=== PATIENT | female | born 1950 | race Caucasian/White ===

== ENCOUNTER 2019-01-11 23:37 | Inpatient (IN) | payer MEDICARE, MEDICAID ==
[~2019-01-11] VITALS: Ht 172.7 cm; Wt 81.2 kg
[2019-01-12] MEDS ORDERED: ACETAMINOPHEN 325 MG TABLET PO PRN (00:30)
[2019-01-12] MEDS ORDERED: TEMAZEPAM 7.5 MG CAPSULE PO PRN (00:30)
[2019-01-12] MEDS ORDERED: MAG HYDROX/AL HYDROX/SIMETH 30 ML UDC PO PRN (00:30)
[2019-01-12] MEDS ORDERED: MAGNESIUM HYDROXIDE 30 ML UDC PO PRN (00:30)
[2019-01-12] MEDS ORDERED: BLOOD SUGAR DIAGNOSTIC 1 EACH STRIP IN ONE (00:30)
[2019-01-12] MEDS ORDERED: LORAZEPAM 0.5 MG TABLET PO PRN (00:30)
[2019-01-12] MEDS ORDERED: OMEP20CA11 PO (01:13)
[2019-01-12] MEDS ORDERED: ONDA4TAB10 PO (01:13)
[2019-01-12] MEDS ORDERED: ATOR40TA PO (01:13)
[2019-01-12] MEDS ORDERED: BUSP10TA3 PO (01:13)
[2019-01-12] MEDS ORDERED: TRAZ-182 PO (01:13)
[2019-01-12] MEDS ORDERED: LEVO150T8 PO (01:13)
[2019-01-12] MEDS ORDERED: TIZA4TAB5 PO (01:13)
[2019-01-12] MEDS ORDERED: VIT D PO (01:13)
[2019-01-12] MEDS ORDERED: ASPI-605 PO (01:13)
[2019-01-12] MEDS ORDERED: ALBUT2 CONTNEB (01:13)
[2019-01-12] MEDS ORDERED: OXYC-133 PO (01:13)
[2019-01-12] MEDS: ATORVASTATIN 40 MG TABLET PO SCH ×2 (01:30→21:19)
[2019-01-12] MEDS ORDERED: ALBUTEROL FS 2.5 MG/3 ML VIAL.NEB CONTNEB SCH (01:30)
[2019-01-12 02:09] VITALS: BP 136/82
--- NOTE | 2019-01-12 02:41 | NUR ---
ADMISSION NOTES: ADMITTED THIS 68Y/O FEMALE PATIENT ADMIT FROM [facility]/ IN[facility] FROM HOME , PT ADMITTED TO GPS ON [address] TO SELF PER HOLD OVER DOSE ON UNKNOWN AMOUNTS OF XANEX,OXYCODENE, VALIUM AND ZOFRAN ,UPON FACE TO FACE ASSESSMENT PATIENT IS A&O X ,2,3 DISORGNIZED, ANXIOUS, FLAT AFFECT, PARNOID, DISHELVED, NEEDY ,EASILY GETS AGITATED, DENIES SI/HI AT THIS TIME , AND PT. STATES I FEELING OVER WHELMED .PT. IS POOR HISTORIAN, POOR INSIGHT ,POOR JUDGEMENT , PT. REFUSED TO TAKE SHOWER AT THIS TIME , PT. REFUSED TO SIGNS ADMISSION CONSENT PAPERS , DUE TO MENTAL STATUS UNCOOPERTIVE , PT. REFUSED TO CHECK INTIALLY BLOOD SUGAR, I DONT WANTS CHECK AT THIS TIME , ENCOURAGED, EXPLAINED RISKS AND BENEFITS STILL REFUSED , AWARE AND NOTIFIED OF THE ADMISSION, BELONGINGS CONTRABAND WERE DONE , NURSING ASSESSMENT DONE ,PT. RIGHTS DISCUSS BY MODEL BUILDER DISPLAY , PROVIDE THE PT. WITH HANDBOOK, AND MEDICATIONS GUIDE, ENVIRONMENTAL SAFETY CHECK DONE, ENCOURAGED PT. VERBALIZED ANY FEELING CONCERN TO STAFF, ORIENT TO UNIT POLICY, NO ACUTE DISTRESS NOTED,VITAL SIGNS WNL ,DENIES ANY PAIN AT THIS TIME ,WILL CONTINUE TO MONITOR FOR Q15 SAFETY AND BEHAVIOR.
[2019-01-12] MEDS ORDERED: SUMA100T16 PO (03:17)
--- NOTE | 2019-01-12 06:54 | NUR ---
RN NOTES: PLACED CALL AND INFORMED TO PT. CONTACT MEMBER MALLORY RUIZ FRIEND # [phone] ,
[2019-01-12 08:00] VITALS: BP 127/65
[2019-01-12] MEDS: ASPIRIN EC 81 MG TABLET.DR PO SCH (08:57)
[2019-01-12] MEDS: TIZANIDINE HCL 4 MG TABLET PO SCH (08:57)
[2019-01-12] MEDS ORDERED: OMEPRAZOLE 20 MG CAPSULE.DR PO SCH (09:00)
[2019-01-12] MEDS ORDERED: LEVOTHYROXINE SODIUM 150 MCG TABLET PO SCH (09:00)
[2019-01-12] MEDS: oxyCODONE/APAP (5/325 MG) 1 UDTAB TABLET PO PRN (10:07)
--- NOTE | 2019-01-12 10:07 | NUR ---
RN NOTE- PT C/O PAIN GENERALIZED TO LOWER EXTREMITIES AND BACK 6-10. OXYCODONE ADMINISTERED AT THIS TIME.
[2019-01-12] MEDS: PANTOPRAZOLE 40 MG TABLET.DR PO SCH (10:21)
[2019-01-12] MEDS: LEVOTHYROXINE SODIUM 75 MCG TABLET PO SCH (10:22)
--- NOTE | 2019-01-12 10:36 | NUR ---
WOUND CARE CONSULT: PT PRESENTS CONTINENT AND INDEPENDENT WITH BED MOBILITY BUT WITH RASH TO PERINEAL/INNER BUTTOCK AREAS, VERY MOIST SKIN AND DISCOLORATION TO HANDS AND ARMS, PRESENT ON ADMISSION. RECOMMENDATIONS MADE FOR SKIN CARE AND PROTECTION. DISCUSSED WITH NURSING STAFF. WILL SEE PRN. CASTILLO IN AGREEMENT WITH PLAN OF CARE. Addendum: 01/12/19 at 1038 by ARISTIDES WELLS WNDNU Amended: Links added.
[2019-01-12] MEDS: Z GUARD REMEDY 2 OZ OINT TP SCH (11:00)
[2019-01-12] MEDS ORDERED: Z GUARD REMEDY 2 OZ OINT TP PRN (11:00)
--- NOTE | 2019-01-12 12:15 | NUR ---
RN NOTE- PT W ONE SMALL EPISODE OF VOMITING AFTER LUNCH. MINIMAL AMOUNT. WILL MONITOR
--- NOTE | 2019-01-12 14:45 | NUR ---
SW contacted pts friend Mindy Varma [phone] who stated she will brass pickler pt and transport home once stable for discharge. Friend mentioned that pt does not have family involved in her care and that she has a son that lives out of state who has minimal involvement with pt. SW asked Mindy for sons phone number and Mindy stated that she was driving and was unable to provide SW with sons contact information but would have him call SW to discuss pts treatment and discharge plan.
--- NOTE | 2019-01-12 15:31 | NUR ---
GROUP NOTE: SW encouraged pt to participate in group on this present day discussing "discharge planning." Pt not appropriate for group at this time due to her current delusions of persecution and paranoia.
[2019-01-12 16:00] VITALS: BP 111/65
--- NOTE | 2019-01-12 16:14 | NUR ---
INITIAL DISCHARGE PLAN: Pt wishes to return home [address] [facility] [address] . Per friend Mindy [phone] she is safe to return home and stated that she would transport her home once stable for discharge. WILLIAM will help form a safe and proper discharge in collaboration with .
[2019-01-12] MEDS: CLOTRIMAZOLE 1% 15 GM TUBE TP SCH (16:25)
--- NOTE | 2019-01-12 19:40 | NUR ---
GPS NOTES DR. GERARDO, IN UNIT. SEEN AND EXAMINED PATIENT.
[2019-01-12 20:07] VITALS: BP 149/94
[2019-01-12] MEDS ORDERED: hydrOXYzine PAMOATE 25 MG CAPSULE PO PRN (20:30)
[2019-01-12] MEDS: OLANZAPINE 5 MG TABLET PO SCH (20:34)
[2019-01-12] MEDS: MIRTAZAPINE 15 MG TABLET PO SCH (21:19)
[2019-01-13] MEDS: oxyCODONE/APAP (5/325 MG) 1 UDTAB TABLET PO PRN (03:06)
[2019-01-13] MEDS: LEVOTHYROXINE SODIUM 75 MCG TABLET PO SCH (06:32)
[2019-01-13 06:54] LABS: BASOPHILS % (AUTO) 0.6 % (0.0-2.0); EOSINOPHILS % (AUTO) 2.3 % (0.0-6.0); HEMATOCRIT 36 % (33-45); HEMOGLOBIN 11.9 g/dL (11.5-14.8); LYMPHOCYTES # (AUTO) 2.4 /CMM (0.8-4.8); LYMPHOCYTES % (AUTO) 28.8 % (20.0-44.0); MEAN CORPUSCULAR HGB CONC 33 g/dl (31.0-36.0); MEAN CORPUSCULAR VOLUME 90 fL (82-100); NEUTROPHILS # (AUTO) 4.7 /CMM (1.8-8.9); NEUTROPHILS % (AUTO) 56.3 % (43.0-81.0); PLATELET COUNT (AUTO) 426 /CMM (150-450); RED BLOOD CELL COUNT(AUTO) 4.01 MIL/uL (4.0-5.2); WHITE BLOOD COUNT (AUTO) 8.4 K/uL (4.3-11.0)
[2019-01-13 07:01] LABS: CHOLESTEROL 215 mg/dL (<200); HDL CHOLESTEROL 56 mg/dL (40-60); LDL 124 mg/dL (0-99); TRIGLYCERIDES 121 mg/dL (30-150)
[2019-01-13 07:02] LABS: ALBUMIN 3.4 g/dL (3.4-5.0); BILIRUBIN,TOTAL 0.3 mg/dL (0.2-1.0); CALCIUM, SERUM 9.2 mg/dL (8.5-10.1); CREATININE 0.7 mg/dL (0.6-1.3); MAGNESIUM 1.8 mg/dL (1.8-2.4); PHOSPHORUS 2.6 mg/dL (2.5-4.9); POTASSIUM 3.3 mmol/L (3.5-5.1); TOTAL PROTEIN, SERUM 7.2 g/dL (6.4-8.2)
[2019-01-13 07:08] LABS: THYROID STIMULATING HORMONE 2.068 uIU/mL (0.358-3.74)
[2019-01-13 08:00] VITALS: BP 158/96
--- NOTE | 2019-01-13 09:48 | NUR ---
COLLATERAL INFORMATION: SW received a call from pts christiano Dudley [phone] who provided SW with collateral information. Per son, pt was discharged from [facility] in [place] last week after having a heart attack, son stated that pt was discharged home on hospice after refusing heart surgery. Son mentioned that this is pts first psychiatric hospitalization and that her current symptoms are probably due to pt withdrawing from pain medications, benzodiazepines, and opiates. Son stated that pt has a long history of addiction and dependence of opiates and pain medications and has been hospitalized several times for overdosing and that the last time she was hospitalized she was discharged to a SNF due to her inability to care for herself at home. Per son, pt cannot return home as she cannot care for herself and is at risk of another heart attack. SW informed son that pt will be referred to a local SNF and son agreed. SW also informed him that she would inform pts nurse of pt current history of heart failure.
--- NOTE | 2019-01-13 09:57 | NUR ---
SW endorsed follow up with Litzy Blanco RN to contact pts son and inform theatrical variety agent of pts recent heart attack.
--- NOTE | 2019-01-13 09:59 | NUR ---
JEFF GONCALVES SERVICE RECEIVED CALL FROM PT'S SON THAT SHE RECENTLY HAD A HEART ATTACK AND WAS DISCHARGED FROM ANOTHER HOSPITAL.
[2019-01-13] MEDS ORDERED: POTASSIUM CHLORIDE 20 MEQ TAB.PRT.SR PO SCH (10:00)
[2019-01-13] MEDS: ASPIRIN EC 81 MG TABLET.DR PO SCH (10:14)
[2019-01-13] MEDS: TIZANIDINE HCL 4 MG TABLET PO SCH (10:14)
[2019-01-13] MEDS: PANTOPRAZOLE 40 MG TABLET.DR PO SCH (10:14)
[2019-01-13] MEDS: OLANZAPINE 5 MG TABLET PO SCH ×2 (10:14→20:08)
[2019-01-13] MEDS: CLOTRIMAZOLE 1% 15 GM TUBE TP SCH ×2 (10:43→16:40)
[2019-01-13] MEDS: Z GUARD REMEDY 2 OZ OINT TP SCH (10:44)
--- NOTE | 2019-01-13 11:00 | NUR ---
RN CALLED PT'S SON NINA.INFORMED BY HIM THAT PT. WAS HOSPITALIZED ONE WEEK AGO AT [facility] IN [place].HE STATED THAT HIS MOM VICENTA DIAGNOSED WITH SEVERE HEART PROBLEM AND NEEDS BYPASS SURGERY.HOSPITAL TOLD HER THAT HER CONDITION WAS VERY SERIOUS.PT. DECLINED SURGERY AND SENT HOME ON HOSPICE.SON STATES HE LIVES IN [place].NO INFO OF SUCH FROM PT. HERSELF ON ADMISSION.DR. CHERY HERE AND INFORMED ABOUT ALL OF THIS.NO ORDERS PER SAME INFO.
--- NOTE | 2019-01-13 11:10 | NUR ---
SON STATES BETTER NOT TALK TO MOM AT THIS TIME THEIR LAST CONVERSATION WAS UPSETTING.
--- NOTE | 2019-01-13 12:30 | NUR ---
PT. STATES SHE WOULD LIKE TO TALK TO SON.
--- NOTE | 2019-01-13 15:20 | NUR ---
GROUP NOTE: SW encouraged pt to participate in group on this present day discussing "appropriate coping skills." Pt was asleep and not easily aroused.
[2019-01-13 16:00] VITALS: BP 124/66
[2019-01-13 20:22] VITALS: BP 111/63
[2019-01-13] MEDS: ATORVASTATIN 40 MG TABLET PO SCH ×2 (22:00→22:12)
[2019-01-13] MEDS: MIRTAZAPINE 15 MG TABLET PO SCH ×2 (22:00→22:12)
--- NOTE | 2019-01-13 22:00 | NUR ---
REFUSED REMERON 15 MG AND LIPITOR 8-0 Addendum: 01/13/19 at 2302 by MARIANA MEDRANO RN REFUSED REMERON 15 MG TAB AND LIPITOR 80 MG TAB, STATED THAT SHE IS NOT TAKING THEM.
[2019-01-13] MEDS: ZOLPIDEM TARTRATE 5 MG TABLET PO PRN (22:58)
--- NOTE | 2019-01-13 22:59 | NUR ---
C/O INSOMNIA, AMBIEN 5 MG TAB PO GIVEN
[2019-01-14] MEDS: oxyCODONE/APAP (5/325 MG) 1 UDTAB TABLET PO PRN ×3 (01:01→18:34)
[2019-01-14] MEDS: OLANZAPINE 5 MG TABLET PO SCH ×2 (07:45→20:11)
[2019-01-14] MEDS: LEVOTHYROXINE SODIUM 75 MCG TABLET PO SCH (07:45)
[2019-01-14 08:00] VITALS: BP 107/64
[2019-01-14] MEDS: TIZANIDINE HCL 4 MG TABLET PO SCH (08:03)
[2019-01-14] MEDS: ASPIRIN EC 81 MG TABLET.DR PO SCH (08:03)
[2019-01-14] MEDS: PANTOPRAZOLE 40 MG TABLET.DR PO SCH (08:03)
[2019-01-14] MEDS: Z GUARD REMEDY 2 OZ OINT TP SCH (08:06)
[2019-01-14] MEDS: CLOTRIMAZOLE 1% 15 GM TUBE TP SCH ×2 (08:06→16:58)
--- NOTE | 2019-01-14 11:23 | NUR ---
WILLIAM received a call from pts son Luis Enrique [phone] who requested updated information. WILLIAM informed him that at this SW did not have any updated information nor an anticipated discharge plan.
--- NOTE | 2019-01-14 13:19 | NUR ---
WILLIAM received a call from Alyce casework supervisor at [facility] Address: [address], [place] [address] who was requesting discharge information. Per Alyce, she stated that pts friend Mindy called and informed her that pt was being discharged on Saturday back home. WILLIAM informed her that as of now there is no discharge date for pt and also informed her that per pts son she will be discharged to a SNF as pt is unable to care for herself at the moment. Alyce, agreed and stated that she would be able to continue hospice services at the SNF once transferred. WILLIAM informed her that she would keep her updated.
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
[2019-01-14 16:00] VITALS: BP 131/77
--- NOTE | 2019-01-14 18:34 | NUR ---
RN NOTE- PT C/O PAIN TO HANDS 6-10. PERCOCET ADMINISTERED AT THIS TIME
[2019-01-14 20:13] VITALS: BP 101/58
[2019-01-14 20:18] VITALS: BP 101/58
[2019-01-14] MEDS: MIRTAZAPINE 15 MG TABLET PO SCH (21:28)
[2019-01-14] MEDS: ATORVASTATIN 40 MG TABLET PO SCH (21:28)
[2019-01-14] MEDS: OLANZAPINE 10 MG TABLET PO SCH (21:32)
[2019-01-14] MEDS: ZOLPIDEM TARTRATE 5 MG TABLET PO PRN (22:50)
--- NOTE | 2019-01-14 22:54 | NUR ---
RN GPS NOTES PATIENT STATES " I HOPE I CAN GET SOME SLEEP TONIGHT CAN I HAVE A SLEEP AIDE?" PRN AMBIEN ORDERED OFFERED, PATIENT AGREED STATES " I HAVE TAKEN AMBIEN BEFORE". PRN AMBIEN GIVEN WILL CONTINUE TO MONITOR FOR EFFECTIVENESS.
[2019-01-15 08:00] VITALS: BP 123/74
[2019-01-15] MEDS: OLANZAPINE 5 MG TABLET PO SCH (08:28)
[2019-01-15] MEDS: TIZANIDINE HCL 4 MG TABLET PO SCH (08:28)
[2019-01-15] MEDS: PANTOPRAZOLE 40 MG TABLET.DR PO SCH (08:28)
[2019-01-15] MEDS: ASPIRIN EC 81 MG TABLET.DR PO SCH (08:28)
[2019-01-15] MEDS: LEVOTHYROXINE SODIUM 75 MCG TABLET PO SCH (08:28)
[2019-01-15] MEDS: Z GUARD REMEDY 2 OZ OINT TP SCH (08:31)
[2019-01-15] MEDS: CLOTRIMAZOLE 1% 15 GM TUBE TP SCH ×2 (08:31→17:31)
[2019-01-15] MEDS: oxyCODONE/APAP (5/325 MG) 1 UDTAB TABLET PO PRN ×2 (13:54→21:13)
--- NOTE | 2019-01-15 15:30 | NUR ---
Group Note: SW encouraged pt to participate in group on 01/15/19 at 2pm discussing "social support." Pt appeared to be in a manic mood and presented with a labile affect. Pt refused to participate and stated that she was scared that everyone is out to get her and she has no supports.
[2019-01-15 16:00] VITALS: BP 139/85
[2019-01-15 20:04] VITALS: BP 158/84
[2019-01-15] MEDS: MIRTAZAPINE 15 MG TABLET PO SCH (21:12)
[2019-01-15] MEDS: OLANZAPINE 10 MG TABLET PO SCH (21:13)
[2019-01-15] MEDS: ATORVASTATIN 40 MG TABLET PO SCH (22:00)
[2019-01-16] MEDS: oxyCODONE/APAP (5/325 MG) 1 UDTAB TABLET PO PRN ×3 (04:18→23:31)
[2019-01-16] MEDS: LEVOTHYROXINE SODIUM 75 MCG TABLET PO SCH (07:28)
[2019-01-16 08:03] VITALS: BP 162/87
[2019-01-16] MEDS: PANTOPRAZOLE 40 MG TABLET.DR PO SCH (08:17)
[2019-01-16] MEDS: TIZANIDINE HCL 4 MG TABLET PO SCH (08:17)
[2019-01-16] MEDS: ASPIRIN EC 81 MG TABLET.DR PO SCH (08:17)
[2019-01-16] MEDS: OLANZAPINE 5 MG TABLET PO SCH (08:17)
[2019-01-16] MEDS: CLOTRIMAZOLE 1% 15 GM TUBE TP SCH ×2 (08:18→16:51)
[2019-01-16] MEDS: Z GUARD REMEDY 2 OZ OINT TP SCH (08:18)
--- NOTE | 2019-01-16 08:28 | NUR ---
RN NOTE=- C/O HEADACHE/. TYLENOL GIVEN
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
--- NOTE | 2019-01-16 12:44 | NUR ---
WILLIAM FAXED SNF REFERRAL to Micaela field care coordinator at [facility] Address: [place] [address] for review.
[2019-01-16] MEDS ORDERED: CLONIDINE HCL 0.1 MG TABLET PO PRN (13:30)
--- NOTE | 2019-01-16 13:59 | NUR ---
WILLIAM received a call from pts son Luis Enrique [phone] who requested updated information. WILLIAM informed him that a referral to [facility] had been faxed on this day and that at as of today there was no discharge order. Son agreed with discharge plan but stated pt will refuse to go to a SNF but understood that pt cannot care for herself at home given her current symptoms of psychosis.
--- NOTE | 2019-01-16 14:28 | NUR ---
INTERVENTION: SW attempted to encourage pt to participate in group however pt refused stating that after reading the patients right pamphlet she still did not apprehend it and that she needed things to feel better, pt asked for lip balm, lotion, ointment, and requested to get her commode emptied. SW informed pts nurse of pts requests and pt was provided with the things she requested. Pt also requested her infection in her buttocks area be attended to by a nurse. Pt appeared more lucid and was able to let her needs known. Pt did not appear to be having delusions of persecution at this time.
[2019-01-16 16:00] VITALS: BP 110/60
--- NOTE | 2019-01-16 17:05 | NUR ---
RN NOTE- PT / C/O PAIN TO LOWER BACK 6-10. OXYCODONE PRN ADMINISTERED
--- NOTE | 2019-01-16 19:55 | NUR ---
AWAKE, ALERT, ORIENTED X3, READING A BOOK DURING MY INITIAL ROUNDING, CALM, COOPERATIVE, QUIET, DENIES PAIN AT THIS TIME. NO APPARENT DISTRESS NOTED.
[2019-01-16 20:20] VITALS: BP 102/58
[2019-01-16] MEDS: ATORVASTATIN 40 MG TABLET PO SCH ×2 (21:48→22:00)
[2019-01-16] MEDS: MIRTAZAPINE 15 MG TABLET PO SCH (21:49)
[2019-01-16] MEDS ORDERED: POTASSIUM CHLORIDE 20 MEQ TAB.PRT.SR PO ONE (22:00)
[2019-01-16] MEDS ORDERED: FLUVOXAMINE MALEATE 50 MG TABLET PO ONE (22:00)
--- NOTE | 2019-01-16 22:06 | NUR ---
REFUSEDE HER LIPITOR 80 MG PO, STATED THAT SHE DOES NOT TAKE LIPITOR, IT GIVES HER RASHES.
--- NOTE | 2019-01-16 23:09 | NUR ---
K-DUR 40 MEQ 1 TAB PO X1 NOT GIVEN. ORDER DISCONTINUED.
[2019-01-16] MEDS: QUETIAPINE FUMARATE 100 MG TABLET PO SCH (23:25)
--- NOTE | 2019-01-16 23:31 | NUR ---
C/O BACK PAIN, 8/10 ON PAIN SACLE, PERCOCET TAB 1 PO GIVEN.
[2019-01-17 08:00] VITALS: BP 144/74
[2019-01-17] MEDS ORDERED: ERGOCALCIFEROL (VITAMIN D 2) 50,000 UNIT CAPSULE PO SCH (09:00)
[2019-01-17] MEDS: TIZANIDINE HCL 4 MG TABLET PO SCH (09:15)
[2019-01-17] MEDS: LEVOTHYROXINE SODIUM 75 MCG TABLET PO SCH (09:15)
[2019-01-17] MEDS: ASPIRIN EC 81 MG TABLET.DR PO SCH (09:15)
[2019-01-17] MEDS: PANTOPRAZOLE 40 MG TABLET.DR PO SCH (09:15)
[2019-01-17] MEDS: FLUVOXAMINE MALEATE 50 MG TABLET PO SCH ×3 (09:16→17:49)
[2019-01-17] MEDS: oxyCODONE/APAP (5/325 MG) 1 UDTAB TABLET PO PRN ×2 (09:45→21:49)
--- NOTE | 2019-01-17 09:45 | NUR ---
MEDICATED FOR PAIN ARMS,HANDS,AND RT. GROIN.
[2019-01-17] MEDS: CLOTRIMAZOLE 1% 15 GM TUBE TP SCH ×2 (09:51→17:49)
[2019-01-17] MEDS: Z GUARD REMEDY 2 OZ OINT TP SCH (09:51)
[2019-01-17] MEDS: QUETIAPINE FUMARATE 100 MG TABLET PO SCH (11:43)
--- NOTE | 2019-01-17 12:00 | NUR ---
contacted regarding spotty rash on top of both hands and knees,denies itching.pt. states she has had this for 2 days,states no itching at this time.additionally has smal rash on chest.md to follow up tomorrow.
[2019-01-17 16:00] VITALS: BP 105/65
--- NOTE | 2019-01-17 17:13 | NUR ---
photos taken of rashes on chest,khurram. knees and khurram. hands.
--- NOTE | 2019-01-17 18:54 | NUR ---
medicated for anxiety with vistaril 25 mg po.
--- NOTE | 2019-01-17 19:58 | NUR ---
SITTING ON A CHAIR INSIDE HER ROOM DOING SOME PUZZLE. NO COMPLAINTS MADE AT THIS TIME. CALM, QUIET AND INITIATES INTERACTION.
[2019-01-17 20:06] VITALS: BP 112/59
[2019-01-17] MEDS: MIRTAZAPINE 15 MG TABLET PO SCH (21:46)
[2019-01-17] MEDS: ZOLPIDEM TARTRATE 5 MG TABLET PO PRN (21:47)
--- NOTE | 2019-01-17 21:47 | NUR ---
AMBIEN 5 MG TAB 1 PO GIVEN PER PATIENT'S REQUEST
--- NOTE | 2019-01-17 21:49 | NUR ---
OXYCODONE 5/325 MG TAB 1 PO GIVEN, C/O BACK PAIN, 8/10 ON PAIN SCALE.
[2019-01-18] MEDS: QUETIAPINE FUMARATE 100 MG TABLET PO SCH ×3 (03:11→22:20)
[2019-01-18] MEDS: oxyCODONE/APAP (5/325 MG) 1 UDTAB TABLET PO PRN ×3 (05:06→22:40)
--- NOTE | 2019-01-18 05:06 | NUR ---
C/O PAIN ON HER BACK AND NECK, OXYCODONE 5/325 MG TAB PO GIVEN.
[2019-01-18] MEDS: LEVOTHYROXINE SODIUM 75 MCG TABLET PO SCH (07:55)
[2019-01-18] MEDS: FLUVOXAMINE MALEATE 50 MG TABLET PO SCH ×3 (08:03→16:13)
[2019-01-18] MEDS: ASPIRIN EC 81 MG TABLET.DR PO SCH (08:03)
[2019-01-18] MEDS: TIZANIDINE HCL 4 MG TABLET PO SCH (08:03)
[2019-01-18] MEDS: PANTOPRAZOLE 40 MG TABLET.DR PO SCH (08:03)
[2019-01-18 08:17] VITALS: BP 125/73
[2019-01-18] MEDS: CLOTRIMAZOLE 1% 15 GM TUBE TP SCH ×2 (08:27→16:15)
[2019-01-18] MEDS: Z GUARD REMEDY 2 OZ OINT TP SCH (08:28)
[2019-01-18 16:16] VITALS: BP 118/67
[2019-01-18 20:00] VITALS: BP 122/62
[2019-01-18] MEDS: MIRTAZAPINE 15 MG TABLET PO SCH (21:18)
--- NOTE | 2019-01-18 21:18 | NUR ---
SHE REFUSED HER MIRTAZAPINE 15 MG TAB 1 PO, STATED, " I DON'T LIKW TO TAKE IT."
--- NOTE | 2019-01-18 22:20 | NUR ---
Refused seroquel 100 mg tab tonight, offered x2, still refused.
--- NOTE | 2019-01-18 22:40 | NUR ---
REPORTED PAIN ON HER BACK, 8/10 ON PAIN SCALE, OXYCODONE 5/325 MG TAB 1 PO GIVEN.
[2019-01-19] MEDS: oxyCODONE/APAP (5/325 MG) 1 UDTAB TABLET PO PRN ×3 (05:14→23:50)
--- NOTE | 2019-01-19 05:14 | NUR ---
Up to n. station, reported back pain 8/10 on pain scale. oxycodone 5/325 mg tab po given.
[2019-01-19 08:00] VITALS: BP 159/90
--- NOTE | 2019-01-19 08:22 | NUR ---
WILLIAM contacted pts son Luis Enrique [phone] and left a voicemail informing him pt will be having a PROBABLE CAUSE HEARING on this present day.
[2019-01-19] MEDS: LEVOTHYROXINE SODIUM 75 MCG TABLET PO SCH ×2 (08:25→08:37)
[2019-01-19] MEDS: ASPIRIN EC 81 MG TABLET.DR PO SCH (08:36)
[2019-01-19] MEDS: FLUVOXAMINE MALEATE 50 MG TABLET PO SCH ×3 (08:37→16:07)
[2019-01-19] MEDS: TIZANIDINE HCL 4 MG TABLET PO SCH (08:37)
[2019-01-19] MEDS: PANTOPRAZOLE 40 MG TABLET.DR PO SCH (08:37)
[2019-01-19] MEDS: CLOTRIMAZOLE 1% 15 GM TUBE TP SCH ×2 (09:00→16:08)
[2019-01-19] MEDS: Z GUARD REMEDY 2 OZ OINT TP SCH (09:00)
--- NOTE | 2019-01-19 10:52 | NUR ---
SW received a call from Micaela, interior design coordinator at [facility] Address: [place] [address] stating pt cannot be accepted due to no skilled need.
--- NOTE | 2019-01-19 10:54 | NUR ---
WILLIAM contacted pts christiano Dudley [phone] and discussed pts PC HEARING outcome. SW informed him that the development officer ruled in favor of the hospital. SW also informed son that pt refused SNF placement and also informed him that SNF did not accept pt. Son is agreeable with pt discharging back home with hospice care and also stated that pt has a roommate that lives with her and also stated that pt does have IHSS. SW informed him that she will be contacting him once psychiatrist has discharge order. Son agreed.
[2019-01-19] MEDS: QUETIAPINE FUMARATE 100 MG TABLET PO SCH ×2 (11:00→23:00)
--- NOTE | 2019-01-19 11:18 | NUR ---
RN NOTE: PATIENT REFUSED 1100 SEROQUEL x3. RISK AND BENEFITS EXPLAINED. PATIENT STATES "I WILL NOT TAKE THAT."
[2019-01-19 16:00] VITALS: BP 116/71
[2019-01-19 20:16] VITALS: BP 163/89
[2019-01-19] MEDS: MIRTAZAPINE 15 MG TABLET PO SCH (22:00)
--- NOTE | 2019-01-19 22:54 | NUR ---
REMERON 15MG REFUSED, DR GERARDO MADE AWARE
[2019-01-20 08:00] VITALS: BP 117/83
[2019-01-20] MEDS: PANTOPRAZOLE 40 MG TABLET.DR PO SCH (08:58)
[2019-01-20] MEDS: FLUVOXAMINE MALEATE 50 MG TABLET PO SCH (08:58)
[2019-01-20] MEDS: ASPIRIN EC 81 MG TABLET.DR PO SCH (08:58)
[2019-01-20] MEDS: CLOTRIMAZOLE 1% 15 GM TUBE TP SCH (08:59)
[2019-01-20] MEDS: Z GUARD REMEDY 2 OZ OINT TP SCH (09:00)
[2019-01-20] MEDS: TIZANIDINE HCL 4 MG TABLET PO SCH (09:00)
[2019-01-20] MEDS: QUETIAPINE FUMARATE 100 MG TABLET PO SCH (10:02)
[2019-01-20] MEDS: oxyCODONE/APAP (5/325 MG) 1 UDTAB TABLET PO PRN ×2 (10:06→10:11)
--- NOTE | 2019-01-20 10:31 | NUR ---
WILLIAM contacted pts son Luis Enrique [phone] and informed him psychiatric has ordered discharge for pt on this present day. Son was not agreeable with discharge but understood that pt no longer mets criteria for acute psychiatric hospitalization. WILLIAM informed him that she is attempting to coordinate transportation with pts [facility] caregiver Natalee [phone]. Son agreed.
--- NOTE | 2019-01-20 10:46 | NUR ---
WILLIAM spoke with pts [facility] caregiver Natalee [phone] and friend Princess [phone] who stated she will be picking pt up at 12:00pm and transporting home.
--- NOTE | 2019-01-20 11:08 | NUR ---
DISCHARGE NOTE: Pt will be discharged at 12:00pm home [address] [facility] [address] . Pts friend Princess [phone] will be transporting pt home. Pts son Luis Enrique [phone] has been notified and agrees with discharge plan. Pts [facility] caregiver Natalee [phone] will be waiting for pt at home. Pts mood is euthymic with congruent affect. Pt denied visual/auditory hallucinations and denied suicidal/homicidal ideation. Pt will address her substance use and mental health with [facility] Address: [address] [id number] . Pt has a follow up appointment on Saturday01/26/19 at 9:00am. SW faxed clinicals to . Pt will also follow up with Seamer Operator: Dr. Amol Queen Address: [place] [address] . The multidisciplinary exit care form was done, printed, signed, and given to the patient.
--- NOTE | 2019-01-20 13:00 | NUR ---
POKER MANAGER NOTE: PATIENT DISCHARGED TO HOME AT 13:[address] AT [address] [place] [id number]. # [phone] PATIENT IS IN STABLE CONDITION. VSS. NO ACUTE DISTRESS NOTED. NO COMPLAINTS. COMPLIANT WITH MEDICATION MANAGEMENT. COOPERATIVE WITH PLAN OF CARE. PSYCHIATRIC TREATMENT PLANS MET. MEDICAL TREATMENT PLANS DEFERRED FOR CONTINUAL MONITORING. DENIES SI/HI VAH AT THE TIME OF DISCHARGE. PATIENT REFUSED SKIN ASSESSMENT AND PHOTOS TO BE TAKEN AT DISCHARGE. EDUCATED PATIENT ABOUT AFTERCARE WITH COPY PROVIDED. RETURNED PERSONAL BELONGINGS TO PATIENT. MEDICATIONS RECONCILED WITH ALONG WITH PSYCHIATRIC DISCHARGE ORDERS FROM DR GERARDO WITH PRESCRIPTIONS. PT MEDICALLY CLEARED BY DR. HENDRICKS AND PRESCRIPTIONS GIVEN TO PT. DISCHARGE PAPERWORK SIGNED. FOR FOLLOW UP WITH PSYCHIATRIST AND SURVEYOR WITHIN 1 WEEK. PATIENT LEFT THE [facility] GPS VIA WHEEL CHAIR ACCOMPANIED BY [employer] DESIGNER AND PATIENTS FRIEND MANI TO PRIVATE VEHICLE.
== END 2019-01-20 13:00 | disposition home or self-care (01) | DRG 885 ==
LOC: GPS 01-12
PROVIDERS: ADMIT Psychiatry & Neurology Psychiatry; ATTEND Internal Medicine
DX: F25.9 Schizoaffective disorder, unspecified (principal); F29 Unspecified psychosis not due to a substance or known physiological condition; F41.9 Anxiety disorder, unspecified; E03.9 Hypothyroidism, unspecified; D35.00 Benign neoplasm of unspecified adrenal gland; E78.5 Hyperlipidemia, unspecified; F32.9 Major depressive disorder, single episode, unspecified; G43.909 Migraine, unspecified, not intractable, without status migrainosus; K21.9 Gastro-esophageal reflux disease without esophagitis; I10 Essential (primary) hypertension; M81.0 Age-related osteoporosis without current pathological fracture; Z91.5 Personal history of self-harm; Z81.8 Family history of other mental and behavioral disorders; G50.0 Trigeminal neuralgia; K44.9 Diaphragmatic hernia without obstruction or gangrene; M79.7 Fibromyalgia
CPT/HCPCS: 36415; 80053-TC; 80061-TC; 83735-TC; 84100-TC; 84443-TC; 85025-TC; 87081-TC; G0480; Q0177